=== PATIENT | female | born 1975 | race Caucasian/White ===

== ENCOUNTER 2024-05-25 08:48 | Emergency (ER) | payer OTHER, SELFPAY ==
[2024-05-25] VITALS (8 sets, daily range): BP systolic 127–138; BP diastolic 78–98; PULSE 57–80; RESP 13–19; TEMP 36.6; O2SAT 96–100
--- NOTE | ~2024-05-25 | XR_ITS ---
XR chest 2V Ordering provider: Los Lawrence MD History: 48 years Female with . CP worse with deep breath/movement. RADIATES TO BACK. NO HX . Comparison: None. FINDINGS: MEDIASTINUM: The cardiac silhouette is not enlarged. LUNGS: No infiltrates, effusions or pneumothorax. OTHER: No free air under the diaphragm. Degenerative changes of the spine. IMPRESSION: No acute cardiopulmonary pathology. Reviewed, dictated and finalized at location A.
--- NOTE | 2024-05-25 08:57 | ECG_ITS ---
Test Date: 2024-05-25 09:02:48 Measurements Intervals [place] Rate: 72 P: 46 CA: 171 QRS: 16 QRSD: 90 T: 34 QT: 349 QTc: 383 Interpretive Statements SINUS RHYTHM POSSIBLE LEFT ATRIAL ENLARGEMENT BASELINE ARTIFACT- II, III, AVL, AVF BORDERLINE ECG No previous ECG available for comparison Electronically Signed On 05-25-2024 10:39:40 CDT by Stevenson Bah D.O.
[2024-05-25 09:15] LABS: Basophils Absolute Auto 0.1 K/mm3 (0.0-0.1); Basophils Percent Auto 0.6 % (0.2-1.2); Eosinophils Absolute Auto 0.2 K/mm3 (0-0.3); Eosinophils Percent Auto 1.9 % (0-4.4); Hemoglobin 14.7 g/dL (12.0-15.0); Immature Granulocyte Absolute 0.06 K/mm3 (0.00-0.031); Immature Granulocyte Percent A 0.6 % (0-0.5); Lymphocytes Absolute Auto 3.11 K/mm3 (0.9-3.2); Lymphocytes Percent Auto 32.8 % (18.3-44.2); Mean Corpuscular HGB Conc 33.4 g/dl (32-36); Mean Corpuscular Hemoglobin 31.7 pg (26-34); Mean Corpuscular Volume 94.8 fl (80-100); Mean Platelet Volume 9.3 fl (7.4-10.4); Monocytes Absolute Auto 0.5 K/mm3 (0.1-0.6); Monocytes Percent Auto 5.5 % (2.6-8.5); Neutrophils Absolute Auto 5.6 K/mm3 (1.3-6.7); Neutrophils Percent Auto 58.6 % (45.5-73.1); Platelet Count Result 331 k/mm3 (150-375); Red Blood Count 4.64 M/mm3 (4.2-5.4); Red Cell Distribution Width 13.2 % (11.5-14.5); White Blood Count 9.5 K/mm3 (4.5-10.0)
[2024-05-25 09:24] LABS: INR 0.8; Prothrombin Time 11.5 Seconds (11.1-14.7)
[2024-05-25 09:25] LABS: Partial Thromboplastin Time 24.9 Seconds (22.3-36.8)
[2024-05-25 09:29] LABS: Alanine Aminotransferase 28 U/L (6-35); Albumin Level 4.1 g/dL (3.5-5.1); Alkaline Phosphatase 97 U/L (38-126); Anion Gap 9 mmol/L (4-12); Aspartate Amino Transferase 26 U/L (14-36); Bilirubin,Total 0.1 mg/dL (0.2-1.3); Blood Urea Nitrogen 13 mg/dL (7-17); Calcium 10.3 mg/dL (8.4-10.2); Carbon Dioxide 22 mmol/L (22-30); Chloride 106 mmol/L (98-107); Estimated CRCL calculation 88 ml/min; Estimated Glomerular Filt Rate > 60; Glucose 106 mg/dL (65-110); Lipase 220 U/L (23-300); Potassium 4.1 mmol/L (3.4-5.0); Sodium 137 mmol/L (137-145)
[2024-05-25 09:37] LABS: Troponin I < 0.012 ng/mL (0.000-0.034)
[2024-05-25] MEDS: KETOROLAC 30 MG/ML VIAL (*BKC) IV PUSH (09:43)
--- NOTE | 2024-05-25 11:51 | ED.GENADULT ---
HPI - General Adult General Chief complaint: Chest Pain Stated complaint: Chest pain Time Seen by Provider: 05/25/24 08:59 History of Present Illness HPI narrative: Patient is a 40-year-old female who presents emergency department with chief complaint of midsternal chest pain patient reports the pain started around 8:00 a.m. while she was at work and moving some boxes. The patient reports they were fairly light reports that she had a sharp flank pain that developed on her left sternal border patient reports the pain is worse with inspiration and worse with movement. The patient reports no prior cardiac history Related Data Allergies Allergy/AdvReac Type Severity Reaction Status Date / Time No Known Allergies Allergy Verified 05/25/24 09:06 Review of Systems Review of Systems: A 10 system review of systems was completed on the patient and is negative except for what is stated in the HPI. Nursing and ancillary documentation was reviewed. Exam Narrative: GENERAL: Well-appearing, well-nourished, and in no acute distress. HEAD: Normocephalic, atraumatic. EYES: PERRLA and EOMI. ENT: Nares clear, no rhinorrhea or epistaxis. Mucous membranes moist. NECK: Supple. CHEST: Clear to auscultation. No respiratory distress. Tenderness to palpation of the left sternal border HEART: Regular rate and rhythm. No murmur heard. Normal peripheral pulses. ABDOMEN: Soft, nontender, nondistended, normal active bowel sounds. EXTREMITIES: Normal range of motion. No edema. SKIN: Warm, dry, no rash. NEURO: No focal deficits. Alert and oriented x3. PSYCH: Normal mood and affect. Course Vital Signs Vital signs: Vital Signs Temperature 36.6 C 05/25/24 09:01 Pulse Rate 77 05/25/24 09:01 Respiratory Rate 17 05/25/24 09:01 Blood Pressure 127/98 H 05/25/24 09:01 Pulse Oximetry 98 05/25/24 09:01 Temperature 36.6 C 05/25/24 10:31 Pulse Rate 64 05/25/24 10:31 Respiratory Rate 18 05/25/24 10:31 Blood Pressure 138/87 05/25/24 10:31 Pulse Oximetry 99 05/25/24 10:31 Oxygen Delivery Room Air 05/25/24 09:09 Medical Decision Making [facility] Narrative Medical decision making narrative: Differential diagnosis includes chest wall pain, noncardiac chest pain, ACS, acute [place] EKG showed no acute ischemic changes Initial troponin is negative laboratory studies showed no acute abnormalities Patient was treated with Toradol A 3 hour delta troponin is currently pending Vital Signs Vital Signs: Vital Signs Temperature 36.6 C 05/25/24 09:01 Pulse Rate 77 05/25/24 09:01 Respiratory Rate 17 05/25/24 09:01 Blood Pressure 127/98 H 05/25/24 09:01 Pulse Oximetry 98 05/25/24 09:01 Temperature 36.6 C 05/25/24 10:31 Pulse Rate 64 05/25/24 10:31 Respiratory Rate 18 05/25/24 10:31 Blood Pressure 138/87 05/25/24 10:31 Pulse Oximetry 99 05/25/24 10:31 Oxygen Delivery Room Air 05/25/24 09:09 Lab Data 05/25/24 09:06 05/25/24 09:06 Labs: Lab Results 05/25/24 05/25/24 Range/Units 09:06 11:52 WBC 9.5 (4.5-10.0) K/mm3 RBC 4.64 (4.2-5.4) M/mm3 Hgb 14.7 (12.0-15.0) g/dL Hct 44.0 (37.0-47.0) % MCV 94.8 (80-100) fl MCH 31.7 (26-34) pg MCHC 33.4 (32-36) g/dl RDW 13.2 (11.5-14.5) % Plt Count 331 (150-375) k/mm3 MPV 9.3 (7.4-10.4) fl Immature Gran % (Auto) 0.6 H (0-0.5) % Neut % (Auto) 58.6 (45.5-73.1) % Lymph % (Auto) 32.8 (18.3-44.2) % [place] % (Auto) 5.5 (2.6-8.5) % Eos % (Auto) 1.9 (0-4.4) % Baso % (Auto) 0.6 (0.2-1.2) % Lymph # (Auto) 3.11 (0.9-3.2) K/mm3 [place] # (Auto) 0.5 (0.1-0.6) K/mm3 Eos # (Auto) 0.2 (0-0.3) K/mm3 Baso # (Auto) 0.1 (0.0-0.1) K/mm3 Abs Immat Gran (auto) 0.06 H (0.00-0.031) K/mm3 Absolute Neuts (auto) 5.6 (1.3-6.7) K/mm3 Absolute Nucleated RBC 0.000 (0.0-0.012) K/mm3 Nucleated RBC % 0.0 (0.0-0.2) % PT 11.5 (11.1-1
[2024-05-25 12:24] LABS: Troponin I < 0.012 ng/mL (0.000-0.034)
== END 2024-05-25 12:33 | disposition home or self-care (01) ==
PROVIDERS: Emergency Provider Emergency Medicine
DX: R07.89 Other chest pain (principal)
CPT/HCPCS: 36415; 71046; 80053; 83690; 84484; 85025; 85610; 85730; 93005; 96374; 99284; J1885